=== PATIENT | male | born 1965 | race American Indian/Alaskan Native ===

== ENCOUNTER 2018-04-02 11:08 | Emergency (ER) | payer OTHER ==
[2018-04-02] MEDS ORDERED: CATAPRES ONE (11:24)
[2018-04-02] MEDS ORDERED: CATAPRES PO ONE (11:26)
[2018-04-02] MEDS ORDERED: HYDROGEN PEROXIDE ONE (11:41)
[2018-04-02] MEDS ORDERED: HYDROGEN PEROXIDE TP ONE (11:41)
--- NOTE | 2018-04-02 11:58 | Emergency Department Report ---
- General Chief complaint: Extremity Injury, Upper Stated complaint: LEFT FINGER SWOLLEN/POSS INFECTION Time Seen by Provider: 04/02/18 11:32 Source: patient Mode of arrival: Ambulatory Limitations: No Limitations - History of Present Illness Initial comments: 53-year-old -[place] male presents much department complaining of a 2 day history of a swelling to the right finger which is worsened since onset, is a dull throbbing pain, worse with palpation and range of motion. No some redness as well. No fever, chills, sweats, chest pain or palpitations. Also has a history of hypertension is the not taking blood pressure medication for at least 3 months -: days(s) (2) Tetanus Up to Date: no Location: LUE Severity: mild Quality: dull Consistency: constant Improves with: none Worsens with: none Context: none Treatments Prior to Arrival: none - Related Data Previous Rx's Medication Instructions Recorded Last Taken Type Chlorhexidine Gluconate [Hibiclens] 10 ml TP BID #240 liquid 04/02/18 Unknown Rx Sulfamethoxazole/Trimethoprim 1 each PO BID #20 tablet 04/02/18 Unknown Rx [Bactrim DS TAB] amLODIPine [Norvasc] 10 mg PO DAILY #30 tab 04/02/18 Unknown Rx cephALEXin [Keflex] 500 mg PO Q6HR #40 capsule 04/02/18 Unknown Rx Allergies Allergy/AdvReac Type Severity Reaction Status Date / Time No Known Allergies Allergy Unverified 04/02/18 11:17 Abscess Boil HPI - HPI Chief Complaint: Extremity Injury, Upper Stated Complaint: LEFT FINGER SWOLLEN/POSS INFECTION Time Seen by Provider: 04/02/18 11:32 Home Medications: Previous Rx's Medication Instructions Recorded Last Taken Type Chlorhexidine Gluconate [Hibiclens] 10 ml TP BID #240 liquid 04/02/18 Unknown Rx Sulfamethoxazole/Trimethoprim 1 each PO BID #20 tablet 04/02/18 Unknown Rx [Bactrim DS TAB] amLODIPine [Norvasc] 10 mg PO DAILY #30 tab 04/02/18 Unknown Rx cephALEXin [Keflex] 500 mg PO Q6HR #40 capsule 04/02/18 Unknown Rx Allergies/Adverse Reactions: Allergies Allergy/AdvReac Type Severity Reaction Status Date / Time No Known Allergies Allergy Unverified 04/02/18 11:17 ED Review of Systems ROS: Stated complaint: LEFT FINGER SWOLLEN/POSS INFECTION Other details as noted in HPI Constitutional: denies: chills, fever Eyes: denies: eye pain, eye discharge, vision change ENT: denies: ear pain, throat pain Respiratory: denies: cough, shortness of breath, wheezing Cardiovascular: denies: chest pain, palpitations Endocrine: no symptoms reported Gastrointestinal: denies: abdominal pain, nausea, diarrhea Genitourinary: denies: urgency, dysuria Musculoskeletal: joint swelling. denies: back pain, arthralgia Skin: denies: rash, lesions Neurological: denies: headache, weakness, paresthesias Psychiatric: denies: anxiety, depression Hematological/Lymphatic: denies: easy bleeding, easy bruising ED Past Medical Hx - Past Medical History Hx Hypertension: Yes - Surgical History Past Surgical History?: No Additional Surgical History: hernia repair - Social History Smoking Status: Current Every Day Smoker Substance Use Type: None - Medications Home Medications: Home Medications Medication Instructions Recorded Confirmed Last Taken Type Chlorhexidine Gluconate [Hibiclens] 10 ml TP BID #240 liquid 04/02/18 Unknown Rx Sulfamethoxazole/Trimethoprim 1 each PO BID #20 tablet 04/02/18 Unknown Rx [Bactrim DS TAB] amLODIPine [Norvasc] 10 mg PO DAILY #30 tab 04/02/18 Unknown Rx cephALEXin [Keflex] 500 mg PO Q6HR #40 capsule 04/02/18 Unknown Rx ED Physical Exam - General Limitations: No Limitations General appearance: alert, in no apparent distress - Head Head exam: Present: atraumatic, normocephalic - Eye Eye exam: Present: normal appearance - ENT ENT exam: Present: normal exam, normal orophraynx, mucous membranes moist - Neck Neck exam: Present: normal inspection, full ROM - Respiratory Respiratory exam: Present: normal lung sounds bilaterally. Absent: respiratory distress - Cardiovascular Cardiovascular Exam: Present: regular rate, normal rhythm. Absent: systolic murmur, diastolic murmur, rubs, gallop - GI/Abdominal GI/Abdominal exam: Present: soft, normal bowel sounds - Rectal Rectal exam: Present: deferred - Extremities Exam Extremities exam: Present: normal inspection, tenderness (redness, tenderness, swelling of the distal aspect of the third phalangeal in the left hand in the area of the nail cuticle resembling a paronychia. Pulses 2+. Capillary refills are brisk) - Back Exam Back exam: Present: normal inspection - Neurological Exam Neurological exam: Present: alert, oriented X3 - Psychiatric Psychiatric exam: Present: normal affect, normal mood - Skin Skin exam: Present: warm, dry, intact, normal color. Absent: rash ED Course Vital Signs 04/02/18 04/02/18 04/02/18 11:13 11:26 11:30 Temperature 97.7 F Pulse Rate 92 H 92 H Respiratory 18 20 Rate Blood Pressure 214/120 214/120 O2 Sat by Pulse 97 Oximetry - Procedure Description Procedures done: Incision and drainage. Left hand third phalanges. The area was prepped in sterile fashion. A #11 scalpel blade was used to make an incision to the paronychia and copious amount of purulent blood-tinged pus was evacuated with no complication. The wound was was irrigated with a peroxide solution and then saline. Procedure tolerated well with no complications. Critical care attestation.: If time is entered above; I have spent that time in minutes in the direct care of this critically ill patient, excluding procedure time. ED Disposition Clinical Impression: Paronychia, HTN (hypertension) Disposition: - TO HOME OR SELFCARE Is pt being admited?: No Does the pt Need Aspirin: No Condition: Stable Instructions: Hypertension (ED), Paronychia (ED) Referrals: PRIMARY CARE [Primary Care Provider] - 3-5 Days [facility] [Provider Group] - 3-5 Days
[2018-04-02 13:13] VITALS: BP 176/123
== END 2018-04-02 13:24 | disposition home or self-care (01) ==
LOC: ED 11:08
DX: L03.011 Cellulitis of right finger (principal); I10 Essential (primary) hypertension